=== PATIENT | male | born 1990 | race African-American/Black ===

== ENCOUNTER 2023-04-02 11:05 | Emergency (ER) | payer MEDICAID, OTHER ==
[~2023-04-02] VITALS: Ht 177.8 cm; Wt 73.0 kg
[2023-04-02 11:11] VITALS: BP 128/82; PULSE 91; RESP 18; TEMP 98.4; O2SAT 100
[2023-04-02] MEDS ORDERED: AMOX1TAB16 MT (13:21)
== END 2023-04-02 13:39 | disposition home or self-care (01) ==
LOC: ER 11:05
DX: K04.7 Periapical abscess without sinus (principal)
CPT/HCPCS: 99283

== ENCOUNTER 2024-10-15 00:05 | Emergency (ER) | payer MEDICAID, OTHER ==
[~2024-10-15] VITALS: Ht 177.8 cm; Wt 73.0 kg
[~2024-10-15 00:05] MED LIST: AMOX1TAB16 MT
[2024-10-15 00:16] VITALS: TEMP 36.8; O2SAT 99
[2024-10-15] MEDS: IBUPROFEN 600MG TABLET PO ONE (02:36)
[2024-10-15 03:20] LABS: BASOPHILS % 0.4 % (0.0-2.0); EOSINOPHILS % 1.6 % (0.0-5.0); HEMATOCRIT. 36.0 % (42.0-52.0); HEMOGLOBIN. 11.8 g/dL (14.0-18.0); LYMPHOCYTES % 23.7 % (20.0-50.0); MEAN PLATELET VOLUME 8.2 fl (7.4-10.4); MONOCYTES % 9.5 % (2.0-8.0); NEUTROPHILS % 64.8 % (40.0-76.0); PLATELET 206 x1000/uL (130-400); RED BLOOD CELL COUNT 4.37 mill/uL (4.7-6.1); RED CELL DISTRIBUTION WIDTH 13.1 % (11.6-14.6)
[2024-10-15 03:35] LABS: CREATININE 0.8 mg/dL (0.6-1.3)
[2024-10-15 03:36] LABS: UREA NITROGEN BLOOD 9 mg/dL (9-23)
[2024-10-15] MEDS ORDERED: SULF1TAB48 MT (03:59)
[2024-10-15] MEDS ORDERED: CEPH500C2 MT (03:59)
[2024-10-15 04:11] VITALS: BP 112/63; PULSE 105; RESP 16; O2SAT 100
== END 2024-10-15 04:22 | disposition home or self-care (01) ==
LOC: ER 00:05
DX: L03.211 Cellulitis of face (principal); D64.9 Anemia, unspecified; E87.6 Hypokalemia; J34.2 Deviated nasal septum; Z86.718 Personal history of other venous thrombosis and embolism; R73.9 Hyperglycemia, unspecified
CPT/HCPCS: 36415; 70486; 80048; 85025; 99284